=== PATIENT | female | born 1965 | race Caucasian/White ===

== ENCOUNTER 2019-08-11 17:07 | Emergency (ER) | payer OTHER, SELFPAY ==
--- NOTE | ~2019-08-11 | XR_ITS ---
EXAMINATION: XR chest 2V DATE: 08/11/2019 18:17 INDICATION: 2 weeks of cough and chest wall pain. TECHNIQUE: frontal and lateral views of the chest were obtained. COMPARISON: None FINDINGS: The lungs are clear with no focal airspace opacities, pulmonary edema, pleural effusion or pneumothor ax. The cardiomediastinal silhouette is normal. Mild thoracic spondylosis. IMPRESSION: 1. No acute cardiopulmonary disease. Reviewed, dictated and finalized at location A. L GRADER
[2019-08-11 17:22] VITALS: BP 145/86; PULSE 79; RESP 16; TEMP 36.5; O2SAT 98
--- NOTE | 2019-08-11 17:58 | ED.URI ---
HPI - URI/Sore Throat General Chief Complaint: Upper Respiratory Infection Stated Complaint: chest congestion Time Seen by Provider: 08/11/19 17:55 Source: patient and RN notes reviewed Mode of arrival: ambulatory Limitations: no limitations History of Present Illness HPI Narrative: 54-year-old female presents with concern for 2-week history of cough. Reports symptoms started with nasal congestion, drainage, cough. Reports most symptoms have resolved with the cough. Reports that symptoms are worsening. Reports episodes of shortness of breath. Reports left upper back pain with coughing. Reports she it is difficult to take a deep breath. Denies [id number] medications provide no relief MD elicited complaint: cough Related Data Allergies Allergy/AdvReac Type Severity Reaction Status Date / Time No Known Allergies Allergy Verified 08/11/19 17:11 Review of Systems Review of Systems: Narrative: CONSTITUTIONAL: Reports malaise. Denies chills, sweats, or fever. EYES: Denies visual changes, redness, or discharge. ENT: Denies rhinorrhea, congestion, sinus pain, otalgia and sore throat. CARDIOVASCULAR: Denies chest pain, palpitations, or edema. RESPIRATORY: Reports cough, chest congestion, back pain with coughing. Denies dyspnea. GASTROINTESTINAL: Denies abdominal pain, nausea, vomiting, diarrhea SKIN: Denies rash or itching. MUSCULOSKELETAL: Denies myalgia. NEUROLOGIC: Denies headache. All systems reviewed & are unremarkable except as noted in HPI and below PMFSH Comments At time of signature, agree with nursing past medical, surgical, social and family history. There is no relevant family history pertinent to the presenting complaint Exam Narrative: Exam Narrative: GENERAL: Well-appearing, well-nourished, and in no acute distress. HEAD: Normocephalic EYES: PERRLA, conjunctivae clear ENT: Nares clear, turbinates pink, no discharge. Mucous membranes moist. TM pearly chew with sharp light reflex bilaterally; no tragal tenderness. Oropharynx not erythematous without lesions. Tonsils not enlarged and without exudate, no drooling, no hoarseness, no trismus. NECK: Supple. No lymphadenopathy CHEST: Clear to auscultation, breath sounds equal. No wheezing, rhonchi, rales, or stridor. No respiratory distress, speaks in full sentences. Chest expansion equal, no bony deformities HEART: Regular rate and rhythm. No murmur heard. Normal peripheral pulses. SKIN: Warm, dry, no rash. NEURO: Alert and oriented x3. PSYCH: Normal mood and affect Course Course Emergency Course: Patient is aware of diagnosis, understands and agrees to treatment plan. Anticipatory guidance given. Patient agrees to follow-up as directed and is aware of reasons to seek care at the emergency department. Portions of this record may have been created with voice recognition software Vital Signs Vital signs: Vital Signs Temperature 97.7 F 08/11/19 17:22 Pulse Rate 79 08/11/19 17:22 Respiratory Rate 16 08/11/19 17:22 Blood Pressure 145/86 H 08/11/19 17:22 Pulse Oximetry 98 08/11/19 17:22 Temperature 97.7 F 08/11/19 17:22 Pulse Rate 79 08/11/19 17:22 Respiratory Rate 16 08/11/19 17:22 Blood Pressure 145/86 H 08/11/19 17:22 Pulse Oximetry 98 08/11/19 17:22 Reviewed. Patient has been instructed to follow up with her primary care provider within the next week regarding her elevated blood pressure today. MDM - URI/Sore Throat MDM Narrative Medical decision making narrative: Differential diagnosis considered: Strep pharyngitis, allergic rhinitis, upper respiratory tract infection, sinusitis, rhinosinusitis, nasopharyngitis. viral pharyngitis, otitis media, otitis externa, pneumonia, bronchitis, viral cough syndrome, viral syndrome, and influenza. Exam findings show no acute concerns or changes; patient is non-toxic appearing and is in no distress. Patient is appropriate for outpatient treatment and follow-up. Imaging Data My impression: Bull
== END 2019-08-11 18:41 | disposition home or self-care (01) ==
PROVIDERS: Emergency Provider Nurse Practitioner
DX: J40 Bronchitis, not specified as acute or chronic (principal); I34.1 Nonrheumatic mitral (valve) prolapse
CPT/HCPCS: 71046; 99203; G0463

== ENCOUNTER 2021-03-05 11:39 | Emergency (ER) | payer OTHER, SELFPAY ==
[2021-03-05 11:49] VITALS: BP 153/81; PULSE 76; RESP 18; TEMP 37.2; O2SAT 98
--- NOTE | 2021-03-05 13:38 | ED.SKABFB ---
HPI - Skin/Abscess/Foreign Bdy General Chief complaint: Skin/Abscess/Foreign Body Stated complaint: Insect Bite Time Seen by Provider: 03/05/21 13:38 Source: patient, RN notes reviewed and old records reviewed Mode of arrival: ambulatory Limitations: no limitations History of Present Illness HPI narrative: 55 year old female presents to express care with complaints of itchy spot to her left lower neck area on Friday, thinks she got bit by some kind of bug. On Friday the spot was bigger and red with no pustular formation but remained itchy seemed to get better using OTC Benadryl and Ibuprofen. Friday through today she has been having swelling and puffiness to her eyes, no itching pain or drainage noted or any redness of her eyes has been using some ice packs to her eyes. Spot on her left neck area is small 0.2cm diameter with minimal redness now. Patient states that she has never had any seasonal allergies before, was started on some new medications 3 weeks or so ago and she talked to her doctor and he said that he didn't think it was related to new medications. MD complaint: insect bite/sting Related Data Home Medications Medication Instructions Recorded Confirmed alprazolam 0.5 mg PO TID PRN 03/05/21 03/05/21 dextroamphetamine-amphetamine 10 mg PO BID 03/05/21 03/05/21 escitalopram oxalate 20 mg PO DAILY 03/05/21 03/05/21 Allergies Allergy/AdvReac Type Severity Reaction Status Date / Time No Known Allergies Allergy Verified 03/05/21 13:03 Review of Systems Review of Systems: CONSTITUTIONAL: Denies fever, chills, or sweats. EYES: Denies visual changes, redness, or discharge, some puffiness of eyes and eyes feel droopy ENT: Denies rhinorrhea, congestion, sore throat, or otalgia. CARDIOVASCULAR: Denies chest pain, palpitations, or edema. RESPIRATORY: Denies cough or dyspnea. GASTROINTESTINAL: Denies abdominal pain, nausea, vomiting, or diarrhea. GENITOURINARY: Denies dysuria or hematuria. SKIN: Denies rash, small raised area to left lower neck with itching. MUSCULOSKELETAL: Denies back pain, joint pain, or myalgia. NEUROLOGIC: Denies headache, numbness, or weakness. PSYCHIATRIC:Positive for history of anxiety or depression. All systems reviewed & are unremarkable except as noted in HPI and below PMFSH Past Medical History Medical History (Updated 03/07/21 @ 14:11 by Glenda Rico NP) ADD (attention deficit disorder) Anxiety with depression Surgical History Surgical History (Updated 03/07/21 @ 14:12 by Glenda Rico NP) No history of previous surgery Family History Family History (Updated 03/07/21 @ 14:13 by Glenda Rico NP) Other No significant family history Social History Social History (Updated 03/07/21 @ 14:13 by Glenda Rico NP) Smoking status: Never smoker Alcohol intake: current Alcohol use details: rare social Substance use: never Living arrangements: with family Gender identity (if verbalized by the patient): Female Comments At time of signature, agree with nursing past medical, surgical, social and family history. There is no relevant family history pertinent to the presenting complaint Exam Narrative: GENERAL: Well-appearing, well-nourished, and in no acute distress. HEAD: Normocephalic, atraumatic. EYES: PERRLA and EOMI.minimal puffiness noted under eyes with no redness, drainage, or pain ENT: Nares clear, no rhinorrhea or epistaxis. Mucous membranes moist.Tm's normal throat pink with no redness no lesions or exudates or any tonsil enlargement.Denies any difficulty with swallowing. NECK: Supple.no lymphadenopathy CHEST: Clear to auscultation. No respiratory distress.SAO2 98% on room air HEART: Regular rate and rhythm. No murmur heard. Normal peripheral pulses. ABDOMEN: Soft, nontender, nondistended, normal active bowel sounds. EXTREMITIES: Normal range of motion. No edema. SKIN: Warm, dry, no rash.small 0.2cm minimal red lesion to left neck no induratio
== END 2021-03-05 14:05 | disposition home or self-care (01) ==
PROVIDERS: Emergency Provider Registered Nurse
DX: L25.9 Unspecified contact dermatitis, unspecified cause (principal)
CPT/HCPCS: 99213; G0463

== ENCOUNTER 2021-03-19 09:41 | Emergency (ER) | payer OTHER, SELFPAY ==
[2021-03-19 09:50] VITALS: BP 145/94; PULSE 66; RESP 16; TEMP 36.4; O2SAT 100
--- NOTE | 2021-03-19 10:36 | ED.GENADULT ---
HPI - General Adult General Chief complaint: Skin/Abscess/Foreign Body Stated complaint: Insect Bite Time Seen by Provider: 03/19/21 10:13 Source: patient and RN notes reviewed Mode of arrival: ambulatory Limitations: no limitations History of Present Illness HPI narrative: Patient presents today complaining of increased sleepiness, decreased energy x1 week. Patient was bit by a spider 2 weeks ago and was seen in urgent care and treated for an allergic reaction related to the spider bite. She never developed symptoms related to an infection. She took a course of steroids, Pepcid, and Zyrtec. She presents today because she believes she has an infection and the infection is inside of her body and causing this decreased energy and sleepiness and she would like an antibiotic to help this. Patient currently Lexapro, Xanax, and Adderall, prescribed by her psychiatrist. She believes that these medications are not related to her current sleepiness and decreased energy as she was taking them for a few weeks prior to the spider bite. MD complaint: Decreased energy Related Data Home Medications Medication Instructions Recorded Confirmed alprazolam 0.5 mg PO TID PRN 03/05/21 03/19/21 dextroamphetamine-amphetamine 10 mg PO BID 03/05/21 03/19/21 escitalopram oxalate 20 mg PO DAILY 03/05/21 03/19/21 Allergies Allergy/AdvReac Type Severity Reaction Status Date / Time No Known Allergies Allergy Verified 03/19/21 10:20 Review of Systems Review of Systems: CONSTITUTIONAL: Denies body aches, fever, chills, or sweats.+ Decreased energy EYES: Denies visual changes, redness, or discharge. ENT: Denies rhinorrhea, congestion, sore throat, or otalgia. CARDIOVASCULAR: Denies chest pain, palpitations, or edema. RESPIRATORY: Denies cough or dyspnea. GASTROINTESTINAL: Denies abdominal pain, nausea, vomiting, or diarrhea. GENITOURINARY: Denies dysuria or hematuria. SKIN: Denies rash, itching, or wounds. MUSCULOSKELETAL: Denies back pain, joint pain, or myalgia. NEUROLOGIC: Denies headache, numbness, tingling, or weakness. PSYCH: Denies depression or anxiety. [facility] Past Medical History Medical History ADD (attention deficit disorder) Anxiety with depression Surgical History Surgical History No history of previous surgery Family History Family History Other No significant family history Social History Social History Smoking status: Never smoker Alcohol intake: current Alcohol use details: rare social Substance use: never Gender identity (if verbalized by the patient): Female Comments At time of signature, I have reviewed and agree with nursing past medical, surgical, social and family history unless otherwise noted. Please see nursing chart for further information. There is no relevant family history pertinent to the presenting complaint Exam Narrative: GENERAL: Well-appearing, well-nourished, and in no acute distress. HEAD: Normocephalic, atraumatic. EYES: EOMI. No redness or drainage. Conjunctivae normal. ENT: Mucous membranes pink and moist. NECK: Normal AROM. Spider bite was to the right neck/shoulder area. Area is almost slightly healed without signs of infection, erythema, ecchymosis. CHEST: No respiratory distress. EXTREMITIES: Normal range of motion. No edema. SKIN: Warm, dry, no rash. Capillary refill normal. Normal skin turgor. NEURO: No focal deficits. Alert and oriented x3. Gait steady. PSYCH: Normal affect. No signs of depression or anxiety. Course Course Emergency Course: I had an extensive conversation with the patient regarding her symptoms. I do not believe patient has an infection today, as her spider bite is almost 100% healed. Patient is requesti
== END 2021-03-19 10:48 | disposition home or self-care (01) ==
PROVIDERS: Emergency Provider Nurse Practitioner
DX: R53.83 Other fatigue (principal); F41.9 Anxiety disorder, unspecified
CPT/HCPCS: 99211; G0463

== ENCOUNTER 2022-07-02 17:27 | Inpatient (IN) | payer OTHER, SELFPAY ==
--- NOTE | ~2022-07-02 | MR_ITS ---
MR/MRCP of the abdomen: Clinical indication: Abdominal pain. Technique: Coronal SSFSE ARC, WATER:coronal LAVA-FLEX, Coronal 2D FIESTA FatSat, Axial SSFSE BH ARC, Axial 3D DualEcho BH, Axial SSFSE-IR, Axial DWI b=500, Axial 2D FIESTA FatSat, pre and dynamic postco ntrast Axial LAVA ARC, postcontrast Coronal In and Opposed phase LAVA FLEX. 14 mL of MultiHance was a dministered intravenously for postcontrast imaging. Findings: Multiple gallstones are noted. There is mild gallbladder wall thickening and minimal peric holecystic fluid. The common bile duct is nondilated. No filling defects are seen within the CBD. No evidence of intrahepatic biliary ductal dilatation. The pancreatic duct is normal in size. Liver, spleen, pancreas, adrenals, kidneys appear normal. The aorta and the paraaortic regions appear normal. No abnormal postcontrast enhancement seen. Impression: Cholelithiasis. Gallbladder wall thickening and pericholecystic fluid is consistent with superimposed acute cholecyst itis. Consider HIDA scan as indicated. No evidence for choledocholithiasis. Reviewed, dictated and finalized at [facility]. RAIT PHOTOGRAPHER Impression: Cholelithiasis. Gallbladder wall thickening and pericholecystic fluid is consistent with superi mposed acute cholecystitis. Consider HIDA scan as indicated. No evidence for choledocholithiasis.
--- NOTE | ~2022-07-02 | CT_ITS ---
EXAMINATION: CT abdomen pelvis w con DATE: 07/02/2022 18:48 INDICATION: Right upper quadrant and epigastric abdominal pain. Vomiting. TECHNIQUE: Computed tomography (CT) of the abdomen and pelvis was performed with 100 mL Omnipaque 350 intravenous contrast. Automated exposure control and iterative reconstruction technique were employe d. The dose-length product was 370.39 mGy-cm. COMPARISON: None. FINDINGS: The visualized portions of the lung bases demonstrate mild atelectasis. No pleural effusion . The heart size is normal. No pericardial effusion. There is a small sliding hiatal hernia. There is mild intrahepatic biliary duct dilatation. The gallbladder is distended and contains gallstones. Gal lbladder wall thickening is noted. The common duct is normal and measures 6 mm. The spleen, pancreas, adrenal glands, and kidneys are normal. There are no dilated loops of bowel. The appendix is normal. There is physiologic fluid in the pelvis. There are no pathologically enlarged lymph nodes. There is mild thoracolumbar spondylosis. IMPRESSION: 1. Acute cholecystitis. 2. Mild intrahepatic biliary duct dilatation. Reviewed, dictated and finalized at location A. ING MILL OPERATOR HELPER
--- NOTE | ~2022-07-02 | XR_ITS ---
EXAMINATION: XR chest 2V DATE: 07/02/2022 18:05 INDICATION: Chest pain. TECHNIQUE: Frontal and lateral views of the chest were obtained. COMPARISON: Chest 2 views 08/11/2019 FINDINGS: There is no pneumonia, pleural effusion, or pneumothorax. The heart size is normal. IMPRESSION: 1. No acute cardiopulmonary disease. Reviewed, dictated and finalized at location A. R PRESSER
--- NOTE | ~2022-07-02 | XR_ITS ---
Portable chest x-ray Comparison: 07/02/2022 Clinical History: Hypoxia Findings: Probable mild bibasilar atelectatic change and/or interstitial edema. No pleural effusion. Cardiomediastinal silhouette is stable. Bones and soft tissues are unremarkable. Impression: Probable mild bibasilar atelectatic change and/or interstitial edema. Reviewed, dictated and finalized at location . GER QUALITY IMPROVEMENT Impression: Probable mild bibasilar atelectatic change and/or interstitial edema.
--- NOTE | 2022-07-02 17:33 | ECG_ITS ---
Measurements Intervals [place] Rate: 100 P: 48 DE: 157 QRS: 70 QRSD: 80 T: 58 QT: 350 QTc: 452 Interpretive Statements SINUS TACHYCARDIA BORDERLINE ECG NO PREVIOUS ECG AVAILABLE FOR COMPARISON Electronically Signed On 07-02-2022 19:56:58 INDUSTRIAL ENGINEER by Malik Sheridan D.O.
--- NOTE | 2022-07-02 17:47 | ED.CHESTPAIN ---
HPI - Chest Pain General Chief Complaint: Chest Pain Stated Complaint: chest tightness, pain radiates to back, vomiting Time Seen by Provider: 07/02/22 17:47 History of Present Illness HPI narrative: Patient is a 56-year-old female with a history of anxiety and depression presenting with abdominal pain. Patient states that for the last 24 hours she has had significant pain in her epigastrium and right upper quadrant. States this has been associated with numerous episodes of emesis. States she has been unable to keep anything down today. States that she had a normal bowel movement earlier today. States that she also feels like her abdomen is bloated. She states that she has some chest tightness in the center of her chest. No shortness of breath, palpitations, lightheadedness. No fevers or chills, cough, diarrhea, dysuria, leg swelling. Related Data Home Medications Medication Instructions Recorded Confirmed alprazolam 0.5 mg tablet 0.5 mg PO TID PRN Anxiety 03/05/21 07/02/22 escitalopram oxalate 20 mg tablet 20 mg PO DAILY 03/05/21 07/02/22 Allergies Allergy/AdvReac Type Severity Reaction Status Date / Time No Known Allergies Allergy Verified 07/02/22 17:55 Review of Systems Review of Systems: All systems reviewed & are unremarkable except as noted in HPI and below PMFSH Past Medical History Medical History ADD (attention deficit disorder) Anxiety with depression Postmenopausal Surgical History Surgical History H/O left wrist surgery Reconstructive surgery to the ventral wrist after falling through a plate glass window History of 2 sections Family History Family History Son History of sudden cardiac arrest successfully resuscitated, Onset Age: 25 [address]iac defibr[address]ator in place Mitral valve prolapse Father , At age 62 Acute myocardial infarction Grandparent , At age 57 Acute myocardial infarction Mother Gallbladder disease Social History Social History Social History: 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 She lives alone. She has 2 adult sons ages 30 in 35. 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 She is a lifelong nonsmoker. She drinks alcohol approximately once per month. She denies illicit substance use. Code status: Full code Surrogate decision maker: Pili Anthony (mother) Smoking status: Never smoker Alcohol intake: never Alcohol use details: rare social Substance use: never Lack of Transportation: No Lack of Food: Never True Current Housing: I Have Housing Concerned About Future Housing: Decline to Answer Difficulty Paying Gas/Electric Bills: Decline to Answer Difficulty Paying for Meds: Decline to Answer Currently Unemployed: Decline to Answer Education: Decline to Answer Difficulty w/ Childcare or Family Care: Decline to Answer Living arrangements: with family Gender identity (if verbalized by the patient): Female Spiritual care concerns: No Exam Narrative: GENERAL: Well-appearing, well-nourished, and in no acute distress. HEAD: Normocephalic, atraumatic. EYES: PERRLA and EOMI. ENT: Nares clear, no rhinorrhea or epistaxis. Mucous membranes moist. NECK: Supple. CHEST: Clear to auscultation. No respiratory distress. HEART: Regular rate and rhythm. No murmur heard. Normal peripheral pulses. ABDOMEN: Soft, tender in epigastrium and right upper quadrant without guarding or rebound nondistended, normal active bowel sounds. EXTREMITIES: Normal range of motion. No edema. SKIN: Warm, dry, no rash. NEURO: No focal deficits. Alert and oriented x3. PSYCH: Normal mood and affect. Course Vital Signs Vital signs: Vital Signs Pulse Rate 86 07/02/22 18:22 Respiratory Rate 16
[2022-07-02 17:52] LABS: Basophils Percent Auto 0.2 % (0.2-1.2); Hematocrit 39.8 % (37.0-47.0); Hemoglobin 13.5 g/dL (12.0-15.0); Immature Granulocyte Absolute 0.04 K/mm3 (0.00-0.031); Immature Granulocyte Percent A 0.3 % (0-0.5); Lymphocytes Absolute Auto 0.89 K/mm3 (0.9-3.2); Lymphocytes Percent Auto 6.6 % (18.3-44.2); Mean Corpuscular HGB Conc 33.9 g/dl (32-36); Mean Corpuscular Hemoglobin 29.5 pg (26-34); Mean Corpuscular Volume 87.1 fl (80-100); Mean Platelet Volume 9.3 fl (7.4-10.4); Monocytes Percent Auto 7.6 % (2.6-8.5); Neutrophils Absolute Auto 11.5 K/mm3 (1.3-6.7); Neutrophils Percent Auto 85.3 % (45.5-73.1); Platelet Count Result 312 k/mm3 (150-375); Red Blood Count 4.57 M/mm3 (4.2-5.4); White Blood Count 13.5 K/mm3 (4.5-10.0)
[2022-07-02] MEDS: ASPIRIN 81 MG CHEWABLE TABLET 324 MG PO (17:55)
[2022-07-02 18:09] LABS: Partial Thromboplastin Time 24.6 SECONDS (22.3-36.8)
[2022-07-02 18:12] LABS: Albumin Level 4.6 g/dL (3.5-5.1); Alkaline Phosphatase 231 U/L (38-126); Anion Gap 6 mmol/L (8-16); Bilirubin,Total 2.6 mg/dL (0.2-1.3); Blood Urea Nitrogen 9 mg/dL (7-17); Calcium 8.8 mg/dL (8.4-10.2); Carbon Dioxide 27 mmol/L (22-30); Chloride 101 mmol/L (98-107); Estimated CRCL calculation 101 ml/min; Estimated Glomerular Filt Rate > 60; Glucose 138 mg/dL (65-110); Lipase 62 U/L (23-300); Potassium 3.7 mmol/L (3.4-5.0); Sodium 134 mmol/L (137-145)
[2022-07-02 18:21] LABS: Troponin I < 0.012 ng/mL (0.000-0.034)
[2022-07-02 18:22] VITALS: BP 126/82; PULSE 86; RESP 16; O2SAT 97
[2022-07-02 18:30] VITALS: BP 141/87; PULSE 85; RESP 23; O2SAT 98
[2022-07-02] MEDS: ONDANSETRON INJ 4 MG/2 ML VIAL IV PUSH (18:56)
[2022-07-02] MEDS: SODIUM CHLORIDE 0.9% IV 1,000 ML 999 ML IV CONT (18:56)
[2022-07-02 18:57] LABS: Alanine Aminotransferase 1453 U/L (6-35); Aspartate Amino Transferase 1639 U/L (14-36)
[2022-07-02 19:00] VITALS: PULSE 87; RESP 20; O2SAT 96
[2022-07-02] MEDS: HYDROmorphone HCL INJ (*CRX) 1 MG/ML SYR 0.5 MG IV PUSH (19:14)
[2022-07-02 19:56] LABS: Appearance Urine Clear (Clear); Bilirubin Urine 1+ (Negative); Blood Urine Trace-intact (Negative); Color Urine Yellow (Yellow); Glucose Urine UA Negative (Negative); Ketones Urine Negative (Negative); Leukocyte Esterase Ur Trace LEU/UL (Negative); Nitrate Urine Negative (Negative); Protein Urine Negative (Negative)
[2022-07-02] MEDS: metroNIDAZOLE 500 MG/ISO 100ML 500 MG/100 ML BAG 100 MG IVPB (19:58)
[2022-07-02 20:00] VITALS: BP 140/81; PULSE 88; RESP 24; O2SAT 91
[2022-07-02 20:02] LABS: Mucus Urine Few /lpf; Squamous Epithelial Cell Urine Many /hpf (Few); WBC Urine 0-3 /hpf
[2022-07-02 20:03] LABS: Add Urine Microscopic? YES
[2022-07-02 20:42] LABS: Influenza A QL RT-PCR Negative (Negative); Influenza B QL RT-PCR Negative (Negative); SARS-CoV-2 RNA PCR Negative
--- NOTE | 2022-07-02 21:07 | PM.IMHP ---
H&P: HPI History of Present Illness Date/Time: 07/02/22 20:40 Chief Complaint: Chest pain and abdominal pain Narrative: 56-year-old female with a past medical history of anxiety, depression and ADHD who presented to the ER via private vehicle with chest pain, abdominal pain and vomiting. Patient reports her symptoms started around 18:00 last evening after she 80 pizza with extra cheese. Proximally 2 hours after eating she began having some discomfort in her chest accompanied by epigastric abdominal pain that radiated through to her back and into her right upper quadrant. Shortly thereafter she began having numerous episodes of emesis. Her emesis consisted of the food she had previously eaten and then became dry heaves. She reports that she relates the pain similar to labor pains. Position changes and medications including Tylenol did not help. She did try drinking some clear soda which also did not help. The pain was a 10/10 in intensity. She did not have any associated fevers or chills. When she woke up this morning her pain had improved. She tried drinking some clear [place] before going to work. When she arrived at work her abdominal pain returned. When her symptoms persisted throughout the afternoon she decided to come to the ER. She reports that she had similar symptoms but not to this extent shortly after Thanksgiving. She also reports that for the last couple of months she has been having sensation of early satiety and abdominal bloating. She denies any changes in her bowel habits. She has not noticed any hematochezia or melena. She denies any hematemesis. At the time of my evaluation the patient reports her pain is a 7/10 in intensity but is not reproducible on exam. In the ER CT demonstrated acute cholecystitis with cholelithiasis and mild intrahepatic biliary duct dilatation. Labs were significant for bilirubin to 2.6 AST 1639 and ALT of 1453 with alk-phos of 231. The patient's lipase was normal. The patient did have mild leukocytosis and received Rocephin and Flagyl for acute cholecystitis. She also received 1 dose of aspirin 324 mg. Her EKG demonstrated mild sinus tachycardia without any ST or T-wave changes. Patient was admitted for acute cholecystitis. Review of Systems Review of Systems: 12 systems were reviewed with pertinent positives and negatives per HPI. Except as documented in the HPI, all other systems were reviewed and are negative. [facility] Past Medical History Medical History (Updated 07/02/22 @ 22:25 by Sruthi Ponce DO) ADD (attention deficit disorder) Anxiety with depression Postmenopausal Surgical History Surgical History (Updated 07/02/22 @ 21:09 by Sruthi Ponce DO) H/O left wrist surgery Reconstructive surgery to the ventral wrist after falling through a plate glass window History of 2 sections Family History Family History (Updated 07/02/22 @ 22:26 by Sruthi Ponce DO) Son History of sudden cardiac arrest successfully resuscitated, Onset Age: 25 Cardiac defibrillator in place Mitral valve prolapse Father , At age 62 Acute myocardial infarction Grandparent , At age 57 Acute myocardial infarction Social History Social History (Updated 07/02/22 @ 22:26 by Sruthi Ponce DO) Social History: 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 She lives alone. She has 2 adult sons ages 30 in 35. 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 She is a lifelong nonsmoker. She drinks alcohol approximately once per month. She denies illicit substance use. Code status: Full code Surrogate decision maker: Pili Anthony (mother) Smoking status: Never smoker Alcohol intake: never Alcohol use details: rare social Substance use: never Lack of Transportation: No Lack of Food: Never True Current Housing: I Have Housing Concerned About Future Housing: Decline to Answer Difficulty Paying Gas/Electric Bills: Angel
[2022-07-02 21:20] VITALS: BP 128/72; PULSE 75; RESP 20; O2SAT 97
[2022-07-02 21:37] VITALS: BP 140/82; PULSE 74; RESP 16; TEMP 36.8; O2SAT 96
[2022-07-02 21:38] VITALS: BMI 28.0
[2022-07-02] MEDS: SODIUM CHLORIDE 0.9% IV 1,000 ML 150 ML IV CONT (21:40)
--- NOTE | 2022-07-02 22:22 | PC.NURSE ---
This patient, Cheryl Waller, was admitted to Medical Room 340-01. Patient/family oriented to hospital policies and general routines including ID bracelet, bed and alarms, visiting hours, pain management, procedures, bathroom and other care routines, personal items, smoking policy, room service/diet, and visiting hours. Information on how to activate the Rapid Response Team has been discussed. Patient/Family are encouraged to report perceived risks to care and to ask questions if they do not understand what they are told or what they should do.
[2022-07-03] VITALS (13 sets, daily range): BP systolic 123–145; BP diastolic 51–74; PULSE 72–101; RESP 16–20; TEMP 36.6–37.5; O2SAT 93–98
[2022-07-03] MEDS: HYDROmorphone HCL INJ (*CRX) 2 MG/ML VIAL 0.5 MG IV PUSH ×3 (00:54→12:38)
[2022-07-03] MEDS: metroNIDAZOLE 500 MG/ISO 100ML 500 MG/100 ML BAG 100 MG IVPB ×3 (05:21→21:53)
[2022-07-03 05:44] LABS: Hematocrit 35.8 % (37.0-47.0); Hemoglobin 11.8 g/dL (12.0-15.0); Mean Corpuscular Hemoglobin 29.4 pg (26-34); Mean Corpuscular Volume 89.3 fl (80-100); Mean Platelet Volume 9.8 fl (7.4-10.4); Platelet Count Result 243 k/mm3 (150-375); Red Blood Count 4.01 M/mm3 (4.2-5.4); Red Cell Distribution Width 13.1 % (11.5-14.5); White Blood Count 9.9 K/mm3 (4.5-10.0)
[2022-07-03 06:13] LABS: Albumin Level 3.6 g/dL (3.5-5.1); Alkaline Phosphatase 238 U/L (38-126); Anion Gap 1 mmol/L (8-16); Bilirubin,Total 3.6 mg/dL (0.2-1.3); Blood Urea Nitrogen 7 mg/dL (7-17); Calcium 7.9 mg/dL (8.4-10.2); Carbon Dioxide 31 mmol/L (22-30); Chloride 109 mmol/L (98-107); Estimated CRCL calculation 102 ml/min; Estimated Glomerular Filt Rate > 60; Glucose 134 mg/dL (65-110); Sodium 141 mmol/L (137-145)
[2022-07-03 06:19] LABS: Alanine Aminotransferase 1305 U/L (6-35); Aspartate Amino Transferase 892 U/L (14-36)
[2022-07-03] MEDS: SODIUM CHLORIDE 0.9% IV 1,000 ML 150 ML IV CONT (08:03)
--- NOTE | 2022-07-03 11:15 | PM.CNGS ---
Assessment and Plan Assessment and plan (1) Cholelithiasis with acute cholecystitis: Qualifiers: Biliary obstruction: with biliary obstruction Qualified Code(s): K80.01 - Calculus of gallbladder with acute cholecystitis with obstruction Code(s): K80.00 - Calculus of gallbladder with acute cholecystitis without obstruction Status: Acute Assessment and Plan: She presents with acute calculous cholecystitis and elevated liver enzymes. Her total bilirubin has gone up to 3.6 today. She continues to have abdominal pain requiring IV Dilaudid this morning. Will await MRCP results to further evaluate for a common bile duct stone. Discussed treatment options with the patient. If she has evidence of choledocholithiasis, then we will await GI's recommendations for possible ERCP. If the MRCP is negative, then we could consider proceeding with a laparoscopic cholecystectomy, possible open under general anesthesia. I went ahead and discussed the procedure, risks, benefits, expected outcomes, and expected recovery in detail with the patient. Continue broad-spectrum IV antibiotics, IV fluids, and NPO for now. Further plan depending on MRCP results. (2) Transaminitis: Code(s): R74.01 - Elevation of levels of liver transaminase levels Status: Acute Assessment and Plan: Elevated LFTs on admission with total bilirubin 2.6 that has gone up to 3.[address] suggested mild intrahepatic biliary ductal dilatation. Agree with MRCP to evaluate for common duct stone. GI has also been consulted. Plan I have discussed the patient's case and plan of care with Dr. Esquivel. Thank you for allowing us to see the patient in consultation and we will continue to follow along with you. History of Present Illness Consult details Consult date: 07/03/22 Reason for consult: other (Acute cholecystitis) Requesting physician: Kymberly Dumont MD Narrative: This is a 57-year-old woman with history of anxiety, who presented to the emergency department yesterday with complaints epigastric abdominal pain x 2 days. She reports an onset epigastric abdominal pain around 6:00 p.m. 2 days ago after eating pizza. She initially thought she had indigestion and within an hour began having sharp epigastric abdominal pain. This pain radiated to her mid back. She developed nausea and multiple episodes of vomiting. Yesterday, her pain persisted but seemed to get slightly better. She tried drinking sips of water and 7-Up, but would vomit shortly after any intake. Around 1:30pm yesterday afternoon her pain became severe again and she decided to come into the ER for further evaluation. Labs [place] [address] with a left shift, total bilirubin 2.6, AST 1639, ALT 1453, alk-phos 231, negative troponin, and lipase 62. CT scan of the abdomen and pelvis suggests acute calculus cholecystitis with mild intrahepatic bile duct dilatation. She was admitted to the hospitalist service. Our service was consulted by the ED provider for acute cholecystitis. She is now seen on the medical floor. She had an MRCP ordered, which has not yet been done. Labs this morning showed her white blood cell count coming down to normal and her total bilirubin went up to 3.6. GI has been consulted. She continues to have epigastric abdominal pain that required IV Dilaudid around 5:00 a.m. this morning. She denies any current nausea. She denies any dark tea-colored urine, light-colored stools, or scleral icterus. She does endorse having a similar episode of abdominal pain around that was mild and resolved spontaneously at home. Only previous abdominal surgery is 2 deliveries. Review of Systems Review of Systems: All systems reviewed & are unremarkable except as noted in HPI and below Constitutional: Constitutional: Reports no additional constitutional complaints, Denies chills, Denies fatigue and Denies poor appetite Eyes:
--- NOTE | 2022-07-03 16:06 | PC.NURSE ---
Pt to rad @ 4021
--- NOTE | 2022-07-03 16:16 | PM.IMPN ---
Progress Note: A&P Assessment and Plan (1) Cholelithiasis with acute cholecystitis: Qualifiers: Biliary obstruction: with biliary obstruction Qualified Code(s): K80.01 - Calculus of gallbladder with acute cholecystitis with obstruction Code(s): K80.00 - Calculus of gallbladder with acute cholecystitis without obstruction Status: Acute Assessment and Plan: patient presented with epigastric and right upper quadrant pain. CT of the abdomen/pelvis revealed acute cholecystitis with mild intrahepatic biliary duct dilation. Lipase within normal limits. Appreciate general surgery and gastroenterology consultation. Patient with transaminitis and mild intrahepatic biliary duct dilation noted on CT, therefore MRCP completed today which showed cholelithiasis, gallbladder wall thickening and pericholecystic fluid consistent with acute cholecystitis. Planning for laparoscopic cholecystectomy this evening. No evidence of choledocholithiasis. Continue with NPO diet. IV fluids while NPO. Continue ceftriaxone andflagyl. Analgesics and antiemetics available as needed (2) Transaminitis: Code(s): R74.01 - Elevation of levels of liver transaminase levels Status: Acute Assessment and Plan: total bilirubin increased from 2.6 at 3.6 today, however with improvement in AST and ALT. See plan above. No evidence of obstruction. Continue to monitor LFTs. Appreciate GI recommendations (3) Anxiety with depression: Code(s): F41.8 - Other specified anxiety disorders Status: Chronic Assessment and Plan: no acute issues. Mood is stable. Home alprazolam and Lexapro on hold while NPO Subjective Date/time seen: 07/03/22 16:16 Interval history: date of service: 07/03/2022 Cheryl Monaco is a 56-year-old female with history of anxiety, depression, and attention deficit disorder who is seen in follow-up for cholelithiasis and acute cholecystitis. She is feeling better today. reports her abdominal pain is 6/10. Describes the pain as sharp, starting in the epigastric region and radiating through to her back. Pain is improved from yesterday. She complains of headache. She felt nauseous this morning when she got up and walk to the bathroom but at rest she is comfortable. No episodes of emesis. Denies fever or chills. Denies dizziness, lightheadedness, weakness. Denies shortness of breath or cough. She has been NPO today and complains of dry mouth Review of Systems Review of Systems: All systems reviewed & are unremarkable except as noted in HPI and below Exam Narrative: General: well-nourished, well-appearing 56-year-old female, sitting up in bed, comfortable, NARD Neuro: awake, alert and oriented x4, speech clear, no focal neuro deficits noted HEENMT: normocephalic, atraumatic, EOMI, sclerae anicteric Respiratory: clear to auscultation bilaterally, nonlabored breathing Cardio: regular rate, regular rhythm with S1-S2 Abdomen: nondistended, normoactive bowel sounds, soft, tender to palpation epigastric region and right upper quadrant, Torres sign positive Extremities: no edema, erythema, or tenderness to palpation, DP pulses 2+ bilaterally Skin: no rashes or lesions, warm and dry Psych: appropriate mood and affect, judgment and insight intact Objective Data Vital Signs Vital Signs: Vital Signs - 24 hr 07/02/22 18:22 07/02/22 18:30 07/02/22 19:00 Temperature Pulse Rate 86 85 87 Respiratory Rate 16 23 H 20 Blood Pressure 126/82 141/87 H Pulse Oximetry 97 98 96 Oxygen Delivery 07/02/22 21:20 07/02/22 20:00 07/02/22 21:37 Temperature 98.2 F Pulse Rate 75 88 74 Respiratory Rate 20 24 H 16 Blood Pressure 128/72 140/81 140/82 Pulse Oximetry 97 91 96 Oxygen Delivery 07/02/22 22:19 07/03/22 06:00 07/03/22 14:51 Temperature 97.9 F 98.3 F Pulse Rate 85 87 Respiratory Rate 16 16 Blood Pressure 140/74 123/62 Pulse Oximetry 96 96 Oxyge
[2022-07-03] MEDS: LACTATED RINGERS 1,000 ML 30 ML IV CONT (16:30)
--- NOTE | 2022-07-03 16:54 | WPDANESEPPF ---
Anes - Initial Pre Proc Eval Procedure: Operation Date: 07/03/22 18:45 Proposed Procedures p Laparoscopic Cholecystectomy, Possible Open - Romario Esquivel DO Date/Time: 07/03/22 16:54 Surgeon: Charmaine Kim PA-C Pre Op Diagnosis: Acute Cholecystitis Patient Data Age: 56 Gender: F Height: 1.6 m Weight: 72 kg Last Vital Signs Temp 37.5 C 07/03/22 16:15 Pulse 86 07/03/22 16:15 Resp 16 07/03/22 16:15 BP 136/66 07/03/22 16:15 Pulse Ox 95 07/03/22 16:15 O2 Del Method Room Air 07/03/22 16:15 Allergies Allergy/AdvReac Type Severity Reaction Status Date / Time No Known Allergies Allergy Verified 07/02/22 17:55 Home Medications Medication Instructions Recorded Confirmed Type alprazolam 0.5 mg tablet 0.5 mg PO TID PRN Anxiety 03/05/21 07/02/22 History escitalopram oxalate 20 mg tablet 20 mg PO DAILY 03/05/21 07/02/22 History Laboratory Tests 07/02/22 07/02/22 07/02/22 17:43 17:43 17:43 WBC 13.5 K/mm3 H K/mm3 (4.5-10.0) RBC 4.57 M/mm3 M/mm3 (4.2-5.4) Hgb 13.5 g/dL g/dL (12.0-15.0) Hct 39.8 % % (37.0-47.0) MCV 87.1 fl fl (80-100) MCH 29.5 pg pg (26-34) MCHC 33.9 g/dl g/dl (32-36) RDW 13.0 % % (11.5-14.5) Plt Count 312 k/mm3 k/mm3 (150-375) MPV 9.3 fl fl (7.4-10.4) Immature Gran % (Auto) 0.3 % % (0-0.5) Neut % (Auto) 85.3 % H % (45.5-73.1) Lymph % (Auto) 6.6 % L % (18.3-44.2) [place] % (Auto) 7.6 % % (2.6-8.5) Eos % (Auto) 0.0 % % (0-4.4) Baso % (Auto) 0.2 % % (0.2-1.2) Lymph # (Auto) 0.89 K/mm3 L K/mm3 (0.9-3.2) [place] # (Auto) 1.0 K/mm3 H K/mm3 (0.1-0.6) Eos # (Auto) 0.0 K/mm3 K/mm3 (0-0.3) Baso # (Auto) 0.0 K/mm3 K/mm3 (0.0-0.1) Abs Immat Gran (auto) 0.04 K/mm3 H K/mm3 (0.00-0.031) Absolute Neuts (auto) 11.5 K/mm3 H K/mm3 (1.3-6.7) Absolute Nucleated RBC 0.0 K/mm3 K/mm3 (0.0-0.012) Nucleated RBC % 0.0 % % (0.0-0.2) PT 13.0 Seconds Seconds (11.1-14.7) INR 1.0 APTT 24.6 SECONDS SECONDS (22.3-36.8) Sodium 134 mmol/L L mmol/L (137-145) Potassium 3.7 mmol/L mmol/L (3.4-5.0) Chloride 101 mmol/L mmol/L (98-107) Carbon Dioxide 27 mmol/L mmol/L (22-30) Anion Gap 6 mmol/L L mmol/L (8-16) BUN 9 mg/dL mg/dL (7-17) Creatinine 0.50 mg/dL L mg/dL (0.7-1.0) Estim Creat Clear Calc 101 ml/min ml/min Estimated GFR > 60 (59 - ) Glucose 138 mg/dL H mg/dL (65-110) Calcium 8.8 mg/dL mg/dL (8.4-10.2) Total Bilirubin 2.6 mg/dL H mg/dL (0.2-1.3) AST 1639 U/L H U/L (14-36) ALT 1453 U/L H U/L (6-35) Alkaline Phosphatase 231 U/L H U/L (38-126) Troponin I < 0.012 ng/mL ng/mL (0.000-0.034) Total Protein 8.0 g/dL g/dL (6.3-8.2) Albumin 4.6 g/dL g/dL (3.5-5.1) Lipase 62 U/L U/L (23-300) Urine Color Urine Appearance Urine pH Ur Specific [place] Urine Protein Urine Glucose (UA) Urine Ketones Ur Blood (Man) Urine Nitrate Urine Bilirubin Urine Urobilinogen Leukocyte Esterase Rfl Urine RBC Urine WBC Ur Squamous Epith Cells Urine Mucus Influenza A (RT-PCR) Influenza B (RT-PCR) SARS-CoV-2 RNA (RT-PCR) 07/02/22 07/02/22 07/03/22 19:44 19:57 05:06 WBC 9.9 K/mm3 K/mm3 (4.5-10.0) RBC 4.01 M/mm3 L M/mm3 (4.2-5.4) Hgb 11.8 g/dL L g/dL (12.0-15.0) Hct 35.8 % L % (37.0-47.0) MCV 89.3 fl fl
--- NOTE | 2022-07-03 17:07 | WPDHPUPDATE1 ---
History and Physical Update Update Date/Time: 07/03/22 17:07 History and Physical has been reviewed, including an updated exam of the patient. There are NO changes in the patient's condition. Risks, benefits, and alternatives have been discussed and questions answered. Patient agrees to proceed with procedure.
[2022-07-03] MEDS: ceFAZolin 2 GM/D5W 50 ML 2 GM/50 ML BAG IVPB (17:16)
[2022-07-03] MEDS: BUPIVACAINE/EPINEPHRINE 0.5% 30 ML VIAL INFILTRATE (17:36)
--- NOTE | 2022-07-03 18:00 | W.PM.PROC2 ---
Procedure Note - Detailed Date of Procedure 07/03/22 Pre-op Diagnosis Acute Cholecystitis Post-op Diagnosis Same Procedure Performed Laparoscopic Cholecystectomy Surgeon Romario Esquivel, DO Anesthesia General and Local (0.5% bupivacaine) Indications This is a 56-year-old woman who presented to the emergency department with epigastric pain that started 2 days ago. Her pain was persisting and becoming more severe therefore she presented to the ED. she was noted to have significantly elevated liver enzymes and bilirubin. Imaging showed evidence of acute calculous cholecystitis. She was admitted for further treatment. An MRCP was performed this morning and showed no evidence of choledocholithiasis. Discussions were made with the patient about treatment options and decision was made to proceed with laparoscopic cholecystectomy, possible open. Findings Laparoscopic cholecystectomy was performed. The gallbladder had evidence of acute cholecystitis with gallbladder distension and hyperemia/edema of the gallbladder. There were many small stones within the gallbladder. Cystic duct appeared normal in size. The gallbladder was removed and sent to the lab for pathology. Description of Procedure Procedure as well as risks, benefits, and alternatives were discussed with patient. Written consent was obtained and placed in chart prior to procedure. The patient was brought back to surgical suite. Patient was placed in supine position on operating table. Time-out was done to confirm patient and procedure. Patient was then intubated by the anesthesia department. Abdomen was prepped and draped in sterile fashion using chlorhexidine prep. 0.5% bupivacaine with epinephrine was infiltrated at each site of incision. A 5 millimeter incision was made near the umbilicus, and a 5 millimeter Optiview trocar was advanced through the abdominal layers under direct visualization. Once inside the abdominal cavity, carbon dioxide was insufflated to create a pneumoperitoneum. The camera was inserted and the abdomen was inspected. No immediate abnormalities were identified. The patient was placed in reverse Trendelenburg position and rotated slightly to the left. An 11 millimeter incision was made in the subxiphoid region, and an 11 millimeter trocar was inserted under direct visualization. Two 5 millimeter incisions were made in the right upper quadrant, and two 5 millimeter trocars were inserted under direct visualization. The gallbladder was identified and grasped at the fundus and retracted superiorly. It was then grasped at the infundibulum retracted laterally. Careful dissection around the neck of the gallbladder was performed using blunt dissection with a [place] grasper and hook electrocautery. The cystic duct was identified, and a window was created behind it. The cystic artery was also identified and a window was created behind it. The critical view of safety was identified, visualizing the cystic duct running directly into the neck of the gallbladder, and the cystic artery running directly into the wall of the gallbladder. A 5 millimeter clip truck washer was then used to place 2 clips proximally and 1 clip distally on both the cystic duct and cystic artery. They were then both transected using endoscopic scissors. Once safely away from the carrie hepatitis, the gallbladder was dissected free from the liver bed using hook electrocautery. Hemostasis was achieved along the way. The gallbladder was removed completely and then removed through the subxiphoid port. The liver bed was then inspected. Hemostasis appeared adequate, and our clips appeared secure. The area was gently irrigated with sterile saline. No other abnormalities were seen. The patient was flattened out in bed, and 1 final inspection was made around the abdominal cavity. The subxiphoid port was removed, and a Dontrell Davian cone was used to approximate the fascia with an 0-Vicryl simple interrupted sutur
[2022-07-03] MEDS: fentaNYL CITRATE INJ (*CRX) 100 MCG/2 ML VIAL 25 MCG IV PUSH ×4 (18:12→18:40)
[2022-07-03] MEDS: HYDROmorphone HCL INJ (*CRX) 1 MG/ML SYR IV PUSH (20:01)
[2022-07-04] VITALS (7 sets, daily range): BP systolic 113–128; BP diastolic 53–70; PULSE 72–84; RESP 16; TEMP 36.7–37.3; O2SAT 91–97
[2022-07-04] MEDS: HYDROcodone/acetaminophen (*CRX) 7.5-325 MG TABLET 1 TAB PO ×4 (03:02→21:02)
[2022-07-04] MEDS: HYDROmorphone HCL INJ (*CRX) 1 MG/ML SYR IV PUSH (04:56)
[2022-07-04 05:58] LABS: Hemoglobin 10.9 g/dL (12.0-15.0); Mean Corpuscular HGB Conc 32.1 g/dl (32-36); Mean Corpuscular Hemoglobin 29.1 pg (26-34); Mean Corpuscular Volume 90.7 fl (80-100); Mean Platelet Volume 10.2 fl (7.4-10.4); Platelet Count Result 213 k/mm3 (150-375); Red Blood Count 3.75 M/mm3 (4.2-5.4); Red Cell Distribution Width 13.2 % (11.5-14.5); White Blood Count 11.1 K/mm3 (4.5-10.0)
[2022-07-04 06:01] LABS: Alanine Aminotransferase 706 U/L (6-35); Albumin Level 3.4 g/dL (3.5-5.1); Alkaline Phosphatase 267 U/L (38-126); Anion Gap 7 mmol/L (8-16); Aspartate Amino Transferase 247 U/L (14-36); Bilirubin,Total 2.6 mg/dL (0.2-1.3); Blood Urea Nitrogen 8 mg/dL (7-17); Calcium 7.7 mg/dL (8.4-10.2); Carbon Dioxide 23 mmol/L (22-30); Chloride 105 mmol/L (98-107); Estimated CRCL calculation 102 ml/min; Estimated Glomerular Filt Rate > 60; Glucose 113 mg/dL (65-110); Potassium 3.7 mmol/L (3.4-5.0); Sodium 135 mmol/L (137-145)
[2022-07-04] MEDS: metroNIDAZOLE 500 MG/ISO 100ML 500 MG/100 ML BAG 100 MG IVPB ×3 (06:01→21:02)
--- NOTE | 2022-07-04 08:06 | WPDANESPN ---
Anes - Prog Note Post-Op Date/Time: 07/04/22 08:06 Vital Signs: Last Vital Signs Temp 36.7 C 07/04/22 04:32 Pulse 78 07/04/22 04:32 Resp 16 07/04/22 04:32 BP 121/70 07/04/22 04:32 Pulse Ox 94 07/04/22 04:32 O2 Del Method Room Air 07/03/22 20:00 O2 Flow Rate 2 07/03/22 18:45 Pain Score (VAS): 3 I/O: Intake & Output 07/03/22 07/04/22 07/04/22 23:59 07:59 15:59 Intake Total 350 Output Total 800 Balance -450 Laboratory Tests 07/04/22 05:01 07/04/22 05:01 07/04/22 07/04/22 05:01 05:01 WBC 11.1 H RBC 3.75 L Hgb 10.9 L Hct 34.0 L MCV 90.7 MCH 29.1 MCHC 32.1 RDW 13.2 Plt Count 213 MPV 10.2 Sodium 135 L Potassium 3.7 Chloride 105 Carbon Dioxide 23 Anion Gap 7 L BUN 8 Creatinine 0.50 L Estim Creat Clear Calc 102 Estimated GFR > 60 Glucose 113 H Calcium 7.7 L Total Bilirubin 2.6 H AST 247 H ALT 706 H Alkaline Phosphatase 267 H Total Protein 6.0 L Albumin 3.4 L Patient Feedback: Patient satisfied with anesthetic care.
[2022-07-04] MEDS: HYDROmorphone HCL INJ (*CRX) 1 MG/ML SYR 0.5 MG IV PUSH (08:28)
[2022-07-04] MEDS: ENOXAPARIN 40 MG/0.4 ML SYRINGE SUB-Q (08:29)
[2022-07-04] MEDS: ESCITALOPRAM OXALATE 10 MG TABLET 20 MG PO (08:29)
[2022-07-04] MEDS: ALPRAZolam (*CRX) 0.5 MG TABLET PO ×2 (08:31→20:00)
--- NOTE | 2022-07-04 13:43 | WPDGICN ---
Assessment and Plan Assessment and plan (1) Transaminitis: Code(s): R74.01 - Elevation of levels of liver transaminase levels Status: Acute Assessment and Plan: Patient noted to have elevated transaminases. This appears be on the basis of acute cholecystitis. Elevated LFTs have begun to gradually improve after cholecystectomy BS today. No specific bile duct obstruction was identified at time of surgery nor with imaging studies. Plan to continue monitor LFTs until resolution. (2) Acute cholecystitis: Code(s): K81.0 - Acute cholecystitis Status: Acute Assessment and Plan: Patient is now status post laparoscopic cholecystectomy for acute cholecystitis. Elevated LFTs likely on this basis. Will continue to monitor. No specific intervention anticipated otherwise at this time. GI Consult Note Consult date/time: 07/04/22 13:43 Reason for consult: Biliary obstruction . HPI: Cheryl Waller is a 56 year old female Was seen in consult today at the request of the hospitalist service. I was notified to see the patient this morning. It appears the consult originally may have been placed prior to surgical intervention yesterday. Patient presented the emergency room department on yesterday after complaints of epigastric abdominal pain for at least 2 days prior to that. She describes rather severe abdominal pain upon presented to the emergency room was found to have elevated bilirubin in serum transaminases. CT scan imaging was performed which revealed acute calculous cholecystitis. MRCP was performed revealed no evidence of common bile duct gallstones and patient was taken to surgery where she underwent laparoscopic cholecystectomy. Since that time patient has noticed gradual improvement. She continues to complain of incisional discomfort. She is able to eat but has somewhat diminished appetite. Liver function tested begun to improve. Patient reports bowel function persists. She is tolerating diet with no emesis. Review of Systems Review of Systems: Review of systems noncontributory. [facility] Past Medical History Medical History ADD (attention deficit disorder) Anxiety with depression Postmenopausal Surgical History Surgical History H/O left wrist surgery Reconstructive surgery to the ventral wrist after falling through a plate glass window History of 2 sections Family History Family History Son History of sudden cardiac arrest successfully resuscitated, Onset Age: 25 Cardiac defibr[address] in place Mitral valve prolapse Father , At age 62 Acute myocardial infarction Grandparent , At age 57 Acute myocardial infarction Mother Gallbladder disease Social History Social History Social History: 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 She lives alone. She has 2 adult sons ages 30 in 35. 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 She is a lifelong nonsmoker. She drinks alcohol approximately once per month. She denies illicit substance use. Code status: Full code Surrogate decision maker: Pili Anthony (mother) Smoking status: Never smoker Alcohol intake: never Alcohol use details: rare social Substance use: never Lack of Transportation: No Lack of Food: Never True Current Housing: I Have Housing Concerned About Future Housing: Decline to Answer Difficulty Paying Gas/Electric Bills: Decline to Answer Difficulty Paying for Meds: Decline to Answer Currently Unemployed: Decline to Answer Education: Decline to Answer Difficulty w/ Childcare or Family Care: Decline to Answer Gender identity (if verbalized by the patient): Female Spiritual care concerns: No Meds Home Medicati
--- NOTE | 2022-07-04 15:45 | PM.IMPN ---
Progress Note: A&P Assessment and Plan (1) Cholelithiasis with acute cholecystitis: Qualifiers: Biliary obstruction: with biliary obstruction Qualified Code(s): K80.01 - Calculus of gallbladder with acute cholecystitis with obstruction Code(s): K80.00 - Calculus of gallbladder with acute cholecystitis without obstruction Status: Acute Assessment and Plan: Patient presented with epigastric and right upper quadrant pain. CT of the abdomen/pelvis revealed acute cholecystitis with mild intrahepatic biliary duct dilation. Lipase within normal limits. Appreciate general surgery and gastroenterology consultation. Patient with transaminitis and mild intrahepatic biliary duct dilation noted on CT, therefore MRCP completed which showed cholelithiasis, gallbladder wall thickening and pericholecystic fluid consistent with acute cholecystitis. No evidence of choledocholithiasis. Patient underwent laparoscopic cholecystectomy on 07/03/2022. She tolerated the procedure well. Advance to low-fat diet. Continue ceftriaxone and Flagyl. Begin scheduled Tylenol and attempt to limit IV analgesics. Discussed the case with general surgery. (2) Transaminitis: Code(s): R74.01 - Elevation of levels of liver transaminase levels Status: Acute Assessment and Plan: Trending down. As noted above, no evidence of choledocholithiasis. total bilirubin improved to 2.6 today with AST down to 247 and ALT down to 706. recheck tomorrow morning (3) Hypoxia: Code(s): R09.02 - Hypoxemia Status: Acute Assessment and Plan: Patient hypoxic after procedure and required 2 L supplemental O2. She was weaned from oxygen overnight and was on room air this morning. This afternoon, became hypoxic and again required 2 L supplemental O2. Ordered CXR and personally reviewed. Imaging revealed findings of atelectasis. Continue to encourage frequent incentive spirometry use. As noted above, limit narcotics. wean oxygen as tolerated (4) Anxiety with depression: Code(s): F41.8 - Other specified anxiety disorders Status: Chronic Assessment and Plan: no acute issues. Mood is stable. continue home alprazolam and Lexapro Time Spent With Patient Time: 50 minutes for patient encounter Subjective Date/time seen: 07/04/22 15:45 Interval history: Date of service: 07/04/2022 Cheryl Monaco is a 56-year-old female with history of anxiety, depression, and attention deficit disorder who is seen in follow-up for cholelithiasis and acute cholecystitis. She underwent laparoscopic cholecystectomy yesterday. She tolerated the procedure well. Today she reports soreness at the site of her incisions and still some ongoing abdominal pain, though overall improved. Reports that she is still requiring IV analgesics. Discussed transitioning to orals in order to allow for discharge home. Patient was able to tolerate liquids for breakfast today and will advance to low-fat diet for lunch. She denies any shortness of breath, cough, or chest pain. Denies fevers or chills. Review of Systems Review of Systems: All systems reviewed & are unremarkable except as noted in HPI and below Exam Narrative: General: well-nourished, well-appearing 56-year-old female, sitting up in bed, comfortable, NARD Neuro: awake, alert and oriented x4, speech clear, no focal neuro deficits noted HEENMT: normocephalic, atraumatic, EOMI, sclerae anicteric Respiratory: clear to auscultation bilaterally, nonlabored breathing Cardio: regular rate, regular rhythm with S1-S2 Abdomen: nondistended, normoactive bowel sounds, soft, nontender to palpation, surgical incisions visualized Extremities: no edema, erythema, or tenderness to palpation, DP pulses 2+ bilaterally Skin: no rashes or lesions, warm and dry Psych: appropriate mood and affect, judgment and insight intact Objective Data Vital Signs Vital Signs: Vi
--- NOTE | 2022-07-04 15:55 | PM.PNGS ---
Progress Note: A&P Assessment and Plan (1) Cholelithiasis with acute cholecystitis: Qualifiers: Biliary obstruction: with biliary obstruction Qualified Code(s): K80.01 - Calculus of gallbladder with acute cholecystitis with obstruction Code(s): K80.00 - Calculus of gallbladder with acute cholecystitis without obstruction Status: Acute Assessment and Plan: Post-op day 1 and doing fair. This morning she was having some issues with pain control and was still requiring IV Dilaudid, but this has improved. She is trying to stick with oral analgesics this afternoon. Tolerating a low fat diet. Hopefully she will be stable for discharge tomorrow if her pain is better controlled and she has been weaned off oxygen. (2) Transaminitis: Code(s): R74.01 - Elevation of levels of liver transaminase levels Status: Acute Assessment and Plan: Trending down. Related to the acute cholecystitis now s/p lap marielle. Plan I have discussed the patient's case and plan of care with Dr. Esquivel. Subjective Subjective Date/Time Seen: 07/04/22 15:55 Post Op day: 1 (Laparoscopic cholecystectomy) Patient reports: tolerating a regular diet, voiding w/o difficulty, flatus, no bowel movement and afebrile Interval history: Patient seen this afternoon. Overall, she is doing well. Last night and this morning she felt she was letting her pain get out of control and had required IV Dilaudid multiple times. She has tried taking the oral analgesics before letting her pain get out of control and feels that her pain is much better controlled this afternoon. She only complains of abdominal pain and soreness mostly at the epigastric incision. No nausea or vomiting. She is tolerating walking in her room and to the bathroom. She was put on 2 L nasal cannula today due to having an oxygen saturation in the 80s. She had not been using her incentive spirometer and has since been trying to use it more frequently throughout the day. Denies any shortness of breath or chest pain. Review of Systems Review of Systems: All systems reviewed & are unremarkable except as noted in HPI and below Exam Const: General: no acute distress Orientation/consciousness: patient oriented x3 GI: Inspection: non-distended and incision (dry and intact) GI Palp: Yes Soft to palpation, Yes Tenderness to palpation present (GI) (expected incisional tenderness) and No Guarding due to palpation present (GI) Auscultation: normal bowel sounds Extrem: General: no calf tenderness and no edema Objective Data Vital Signs Vital Signs: Vital Signs - 24 hr 07/03/22 16:15 07/03/22 18:03 07/03/22 18:15 Temperature 99.5 F 98.0 F Pulse Rate 86 101 H 77 Respiratory Rate 16 18 18 Blood Pressure 136/66 145/70 H 132/58 L Pulse Oximetry 95 98 93 Oxygen Delivery Room Air Simple Face Mask Simple Face Mask Oxygen Flow Rate 6 6 07/03/22 18:24 07/03/22 18:30 07/03/22 18:45 Temperature Pulse Rate 72 94 Respiratory Rate 20 18 Blood Pressure 138/63 124/51 L Pulse Oximetry 94 93 96 Oxygen Delivery Room Air Nasal Cannula Nasal Cannula Oxygen Flow Rate 2 2 07/03/22 18:47 07/03/22 19:02 07/03/22 19:32 Temperature 98.4 F 98.4 F 98.4 F Pulse Rate 78 74 77 Respiratory Rate 16 16 16 Blood Pressure 127/73 126/70 130/71 Pulse Oximetry 94 98 95 Oxygen Delivery Oxygen Flow Rate 07/03/22 20:32 07/03/22 20:00 07/04/22 00:32 Temperature 98.4 F 98.2 F Pulse Rate 77 77 74 Respiratory Rate 16 16 16 Blood Pressure 125/71 122/70 Pulse Oximetry 95 95 97 Oxygen Delivery Room Air Oxygen Flow Rate 07/04/22 04:32 07/04/22 08:00 07/04/22 11:00 Temperature 98.1 F 99.1 F Pulse Rate 78 84 Respiratory Rate 16 16 Blood Pressure 121/70 116/61 Pulse Oximetry 94 91 Oxygen Delivery Room Air Oxygen Flow Rate 07/04/22 11:14 07/04/22 14:54 Temperature 98.4 F Pulse Rate 79 Respiratory Rate 16 Blood Pressure 128/61 Pulse
--- NOTE | 2022-07-04 16:03 | PM.PNGS ---
Progress Note: A&P Assessment and Plan (1) Cholelithiasis with acute cholecystitis: Qualifiers: Biliary obstruction: with biliary obstruction Qualified Code(s): K80.01 - Calculus of gallbladder with acute cholecystitis with obstruction Code(s): K80.00 - Calculus of gallbladder with acute cholecystitis without obstruction Status: Acute Assessment and Plan: Doing well on POD#1. Encouraged IS and increasing activity. Liver enzymes trending down. Will likely need to stay one more day due to pain control and hypoxia postop. (2) Transaminitis: Code(s): R74.01 - Elevation of levels of liver transaminase levels Status: Acute Subjective Subjective Date/Time Seen: 07/04/22 16:03 Interval history: Patient still having some incisional pain. No nausea or vomiting, tolerating low fat diet. Was hypoxic earlier today and had to be placed on supplemental oxygen. Not using incentive spirometer much yet. Exam GI: Inspection: incision (intact with glue) GI Palp: Yes Soft to palpation and Yes Tenderness to palpation present (GI) (incisional) Objective Data Vital Signs Vital Signs: Vital Signs - 24 hr 07/03/22 16:15 07/03/22 18:03 07/03/22 18:15 Temperature 37.5 C 36.7 C Pulse Rate 86 101 H 77 Respiratory Rate 16 18 18 Blood Pressure 136/66 145/70 H 132/58 L Pulse Oximetry 95 98 93 Oxygen Delivery Room Air Simple Face Mask Simple Face Mask Oxygen Flow Rate 6 6 07/03/22 18:24 07/03/22 18:30 07/03/22 18:45 Temperature Pulse Rate 72 94 Respiratory Rate 20 18 Blood Pressure 138/63 124/51 L Pulse Oximetry 94 93 96 Oxygen Delivery Room Air Nasal Cannula Nasal Cannula Oxygen Flow Rate 2 2 07/03/22 18:47 07/03/22 19:02 07/03/22 19:32 Temperature 36.9 C 36.9 C 36.9 C Pulse Rate 78 74 77 Respiratory Rate 16 16 16 Blood Pressure 127/73 126/70 130/71 Pulse Oximetry 94 98 95 Oxygen Delivery Oxygen Flow Rate 07/03/22 20:32 07/03/22 20:00 07/04/22 00:32 Temperature 36.9 C 36.8 C Pulse Rate 77 77 74 Respiratory Rate 16 16 16 Blood Pressure 125/71 122/70 Pulse Oximetry 95 95 97 Oxygen Delivery Room Air Oxygen Flow Rate 07/04/22 04:32 07/04/22 08:00 07/04/22 11:00 Temperature 36.7 C 37.3 C Pulse Rate 78 84 Respiratory Rate 16 16 Blood Pressure 121/70 116/61 Pulse Oximetry 94 91 Oxygen Delivery Room Air Oxygen Flow Rate 07/04/22 11:14 07/04/22 14:54 Temperature 36.9 C Pulse Rate 79 Respiratory Rate 16 Blood Pressure 128/61 Pulse Oximetry 91 93 Oxygen Delivery Nasal Cannula Oxygen Flow Rate 2 Intake/Output Intake/Output: Intake & Output 07/01/22 07/02/22 07/03/22 07/04/22 23:59 23:59 23:59 23:59 Intake Total 1150 1550 680 Output Total 800 Balance 1150 750 680 Meds/Results Medications: Active Medications Generic Name Dose Route Start Last Admin Trade Name Freq PRN Reason Stop Dose Admin Acetaminophen 650 mg 07/04/22 16:00 Acetaminophen 325 Mg Tablet PO Q8HR LARA Hydrocodone Bitart/Acetaminophen 1 tab 07/03/22 18:47 Hydrocodone/Acetaminophen (*Crx) 5-325 Mg Tablet PO Q4H PRN Pain Rated 4-6 Hydrocodone Bitart/Acetaminophen 1 tab 07/03/22 18:47 07/04/22 12:28 Hydrocodone/Acetaminophen (*Crx) 7.5-325 Mg Tablet PO 1 tab Q4H PRN Administration Pain Rated 7-10 Alprazolam 0.5 mg 07/03/22 18:47 07/04/22 08:31 Alprazolam (*Crx) 0.5 Mg Tablet PO 0.5 mg TID PRN Administration Anxiety Enoxaparin Sodium 40 mg 07/04/22 09:00 07/04/22 08:29 Enoxaparin 40 Mg/0.4 Ml Syringe SUB-Q 40 mg DAILY LARA Administration Escitalopram Oxalate 20 mg 07/04/22 09:00 07/04/22 08:29 Escitalopram Oxalate 10 Mg Tablet PO 20 mg DAILY LARA Administration Hydromorphone HCl 0.5 mg 07/03/22 18:47 07/04/22 08:28 Hydromorphone Hcl Inj (*Crx) 1 Mg/Ml Syr IV PUSH 0.5 mg Q2H PRN Administration Pain Rated 4-6 Hydromorphone HCl 1 mg 07/03/22
[2022-07-04] MEDS: ACETAMINOPHEN 325 MG TABLET 650 MG PO ×2 (16:07→22:44)
[2022-07-05] MEDS: HYDROcodone/acetaminophen (*CRX) 7.5-325 MG TABLET 1 TAB PO ×2 (01:01→07:19)
[2022-07-05 05:52] LABS: Hematocrit 35.9 % (37.0-47.0); Hemoglobin 11.5 g/dL (12.0-15.0); Mean Corpuscular Volume 90.4 fl (80-100); Mean Platelet Volume 9.8 fl (7.4-10.4); Platelet Count Result 244 k/mm3 (150-375); Red Blood Count 3.97 M/mm3 (4.2-5.4); Red Cell Distribution Width 13.2 % (11.5-14.5); White Blood Count 8.7 K/mm3 (4.5-10.0)
[2022-07-05] MEDS: metroNIDAZOLE 500 MG/ISO 100ML 500 MG/100 ML BAG 100 MG IVPB ×3 (05:53→21:06)
[2022-07-05] MEDS: ACETAMINOPHEN 325 MG TABLET 650 MG PO ×3 (05:53→22:00)
[2022-07-05 06:10] LABS: Alanine Aminotransferase 513 U/L (6-35); Albumin Level 3.4 g/dL (3.5-5.1); Alkaline Phosphatase 301 U/L (38-126); Anion Gap 4 mmol/L (8-16); Aspartate Amino Transferase 131 U/L (14-36); Bilirubin,Total 1.6 mg/dL (0.2-1.3); Blood Urea Nitrogen 9 mg/dL (7-17); Calcium 7.6 mg/dL (8.4-10.2); Carbon Dioxide 27 mmol/L (22-30); Chloride 103 mmol/L (98-107); Estimated CRCL calculation 102 ml/min; Estimated Glomerular Filt Rate > 60; Glucose 115 mg/dL (65-110); Potassium 3.4 mmol/L (3.4-5.0); Sodium 134 mmol/L (137-145)
[2022-07-05] MEDS: ONDANSETRON INJ 4 MG/2 ML VIAL IV PUSH (07:19)
[2022-07-05 08:00] VITALS: O2SAT 92
[2022-07-05] MEDS: ENOXAPARIN 40 MG/0.4 ML SYRINGE SUB-Q (08:24)
[2022-07-05] MEDS: ALPRAZolam (*CRX) 0.5 MG TABLET PO ×2 (08:24→17:19)
[2022-07-05] MEDS: ESCITALOPRAM OXALATE 10 MG TABLET 20 MG PO (08:24)
--- NOTE | 2022-07-05 09:07 | PM.PNGS ---
Progress Note: A&P Assessment and Plan (1) Cholelithiasis with acute cholecystitis: Qualifiers: Biliary obstruction: with biliary obstruction Qualified Code(s): K80.01 - Calculus of gallbladder with acute cholecystitis with obstruction Code(s): K80.00 - Calculus of gallbladder with acute cholecystitis without obstruction Status: Acute Assessment and Plan: Surgically doing well. Just needs to get up and move more and continue weaning oxygen. Liver enzymes are trending down. She's tolerating her low fat diet. OK to discharge once on room air. Discussed discharge instructions. Follow up in 2 weeks. (2) Transaminitis: Code(s): R74.01 - Elevation of levels of liver transaminase levels Status: Acute (3) Hypoxia: Code(s): R09.02 - Hypoxemia Status: Acute Subjective Subjective Date/Time Seen: 07/05/22 09:07 Interval history: Still on supplemental oxygen. Tolerating diet. Pain improving. No fevers. Says urine is still a little dark almost orange colored. Exam GI: Inspection: non-distended and incision (intact with glue) GI Palp: Yes Soft to palpation and Yes Tenderness to palpation present (GI) (minimal incisional tenderness) Objective Data Vital Signs Vital Signs: Vital Signs - 24 hr 07/04/22 11:00 07/04/22 11:14 07/04/22 14:54 Temperature 37.3 C 36.9 C Pulse Rate 84 79 Respiratory Rate 16 16 Blood Pressure 116/61 128/61 Pulse Oximetry 91 91 93 Oxygen Delivery Nasal Cannula Oxygen Flow Rate 2 07/04/22 20:15 07/04/22 20:00 Temperature 36.7 C Pulse Rate 72 72 Respiratory Rate 16 16 Blood Pressure 113/53 L Pulse Oximetry 95 95 Oxygen Delivery Nasal Cannula Oxygen Flow Rate 1 Intake/Output Intake/Output: Intake & Output 07/02/22 07/03/22 07/04/22 07/05/22 23:59 23:59 23:59 23:59 Intake Total 1150 1550 1620 Output Total 800 Balance 8496 723 [id number] Meds/Results Medications: Active Medications Generic Name Dose Route Start Last Admin Trade Name Freq PRN Reason Stop Dose Admin Acetaminophen 650 mg 07/04/22 16:00 07/05/22 05:53 Acetaminophen 325 Mg Tablet PO 650 mg Q8HR LARA Administration Hydrocodone Bitart/Acetaminophen 1 tab 07/03/22 18:47 Hydrocodone/Acetaminophen (*Crx) 5-325 Mg Tablet PO Q4H PRN Pain Rated 4-6 Hydrocodone Bitart/Acetaminophen 1 tab 07/03/22 18:47 07/05/22 07:19 Hydrocodone/Acetaminophen (*Crx) 7.5-325 Mg Tablet PO 1 tab Q4H PRN Administration Pain Rated 7-10 Alprazolam 0.5 mg 07/03/22 18:47 07/05/22 08:24 Alprazolam (*Crx) 0.5 Mg Tablet PO 0.5 mg TID PRN Administration Anxiety Enoxaparin Sodium 40 mg 07/04/22 09:00 07/05/22 08:24 Enoxaparin 40 Mg/0.4 Ml Syringe SUB-Q 40 mg DAILY LARA Administration Escitalopram Oxalate 20 mg 07/04/22 09:00 07/05/22 08:24 Escitalopram Oxalate 10 Mg Tablet PO 20 mg DAILY LARA Administration Hydromorphone HCl 0.5 mg 07/03/22 18:47 07/04/22 08:28 Hydromorphone Hcl Inj (*Crx) 1 Mg/Ml Syr IV PUSH 0.5 mg Q2H PRN Administration Pain Rated 4-6 Hydromorphone HCl 1 mg 07/03/22 18:47 07/04/22 04:56 Hydromorphone Hcl Inj (*Crx) 1 Mg/Ml Syr IV PUSH 1 mg Q2H PRN Administration Pain Rated 7-10 Ceftriaxone Sodium/Dextrose 1 gm in 50 mls @ 100 mls/hr 07/03/22 20:00 07/04/22 20:43 Rocephin 1 Gm/D5w 50 Ml IVPB Infused Q24H LARA Infusion Metronidazole 500 mg in 100 mls @ 100 mls/hr 07/03/22 06:00 07/05/22 05:53 Flagyl 500 Mg/Iso Soln 100 Ml IVPB 100 mls/hr Q8HR LARA Administration Ibuprofen 600 mg 07/03/22 18:47 Ibuprofen 600 Mg Tablet PO Q6H PRN Pain Rated 1-3 Ondansetron HCl 4 mg 07/02/22 19:58 07/05/22 07:19 Ondansetron Inj 4 Mg/2 Ml Vial IV PUSH 4 mg Q6H PRN Administration Nausea And Vomiting Radiology Results: ITS Impressions Abdomen/Pelvis CT 07/02/22 18:51 IMPRESSION: 1. Acute cholecystitis.
[2022-07-05 13:46] VITALS: BP 123/62; PULSE 78; RESP 18; TEMP 36.8; O2SAT 92
[2022-07-05 14:00] VITALS: O2SAT 94
--- NOTE | 2022-07-05 14:17 | PM.IMPN ---
Progress Note: A&P Assessment and Plan (1) Cholelithiasis with acute cholecystitis: Qualifiers: Biliary obstruction: with biliary obstruction Qualified Code(s): K80.01 - Calculus of gallbladder with acute cholecystitis with obstruction Code(s): K80.00 - Calculus of gallbladder with acute cholecystitis without obstruction Status: Acute Assessment and Plan: Patient presented with epigastric and right upper quadrant pain. CT of the abdomen/pelvis revealed acute cholecystitis with mild intrahepatic biliary duct dilation. Lipase within normal limits. Appreciate general surgery and gastroenterology consultation. Patient with transaminitis and mild intrahepatic biliary duct dilation noted on CT, therefore MRCP completed which showed cholelithiasis, gallbladder wall thickening and pericholecystic fluid consistent with acute cholecystitis. No evidence of choledocholithiasis. Patient underwent laparoscopic cholecystectomy on 07/03/2022. She tolerated the procedure well. Tolerating low-fat diet. Continue ceftriaxone and Flagyl. Continue scheduled Tylenol and avoid IV analgesics. Limit narcotics due to hypoxia. Outpatient general surgery follow-up in 2 weeks (2) Hypoxia: Code(s): R09.02 - Hypoxemia Status: Acute Assessment and Plan: Patient hypoxic after procedure and required 2 L supplemental O2. She has been weaned to 1 L supplemental O2. CXR showed bibasilar atelectasis. Continue with frequent incentive spirometry. Increased ambulation encouraged. Limit narcotics as noted above. Wean oxygen as tolerated. Plan for home O2 eval prior to discharge. (3) Transaminitis: Code(s): R74.01 - Elevation of levels of liver transaminase levels Status: Acute Assessment and Plan: Trending down. As noted above, no evidence of choledocholithiasis. total bilirubin improved to 1.6 today with AST down to 131 and ALT down to 513. recheck tomorrow morning (4) Anxiety with depression: Code(s): F41.8 - Other specified anxiety disorders Status: Chronic Assessment and Plan: No acute issues. Mood is stable. continue home alprazolam and Lexapro Subjective Date/time seen: 07/05/22 14:18 Interval history: Date of service: 07/05/2022 Cheryl Monaco is a 56-year-old female with history of anxiety, depression, and attention deficit disorder who is seen in follow-up for cholelithiasis and acute cholecystitis. She is s/p laparoscopic cholecystectomy on 07/03/2022. She is doing well today. Her pain is better controlled. She is tolerating her diet. She denies shortness of breath or cough. Denies nausea, vomiting, fever, or chills. States she has been able to ambulate independently. She has no additional concerns Review of Systems Review of Systems: All systems reviewed & are unremarkable except as noted in HPI and below Exam Narrative: General: well-nourished, well-appearing 56-year-old female, supine in bed, comfortable, NARD Neuro: awake, alert and oriented x4, speech clear, no focal neuro deficits noted HEENMT: normocephalic, atraumatic, EOMI, sclerae anicteric Respiratory: clear to auscultation bilaterally, nonlabored breathing Cardio: regular rate, regular rhythm with S1-S2 Abdomen: nondistended, normoactive bowel sounds, soft, nontender to palpation Extremities: no edema, erythema, or tenderness to palpation, DP pulses 2+ bilaterally Skin: no rashes or lesions, warm and dry Psych: appropriate mood and affect, judgment and insight intact Objective Data Vital Signs Vital Signs: Vital Signs - 24 hr 07/04/22 14:54 07/04/22 20:15 07/04/22 20:00 Temperature 98.4 F 98.1 F Pulse Rate 79 72 72 Respiratory Rate 16 16 16 Blood Pressure 128/61 113/53 L Pulse Oximetry 93 95 95 Oxygen Delivery Nasal Cannula Oxygen Flow Rate 1 07/05/22 08:00 07/05/22 13:46 Temperature 98.2 F Pulse Rate 78 Respiratory Rate 18 Blood Pressu
[2022-07-05] MEDS: HYDROcodone/acetaminophen (*CRX) 5-325 MG TABLET 1 TAB PO ×2 (17:19→21:06)
[2022-07-05 17:32] LABS: Appearance Urine Clear (Clear); Bilirubin Urine Negative (Negative); Blood Urine Negative (Negative); Color Urine Yellow (Yellow); Glucose Urine UA Trace mg/dL (Negative); Ketones Urine Negative (Negative); Leukocyte Esterase Ur 1+ LEU/UL (Negative); Nitrate Urine Negative (Negative); Protein Urine Negative (Negative); Specific Grav Ur 1.015 (1.001-1.035)
[2022-07-05 17:35] LABS: Amorphous Sediment Urine Few; Bacteria Urine Trace /hpf; RBC Urine 0-2 /hpf (0-2); Squamous Epithelial Cell Urine Rare /hpf (Few)
[2022-07-05 17:38] LABS: Add Urine Microscopic? YES
[2022-07-05 20:00] VITALS: BP 128/72; PULSE 78; PULSE 85; RESP 16; RESP 18; TEMP 37.4; O2SAT 92; O2SAT 94
[2022-07-06 03:43] VITALS: BP 112/63; PULSE 69; RESP 18; TEMP 36.2; O2SAT 93
[2022-07-06] MEDS: ACETAMINOPHEN 325 MG TABLET 650 MG PO (05:34)
[2022-07-06] MEDS: metroNIDAZOLE 500 MG/ISO 100ML 500 MG/100 ML BAG 100 MG IVPB (05:34)
[2022-07-06 06:01] LABS: Hematocrit 37.8 % (37.0-47.0); Hemoglobin 12.4 g/dL (12.0-15.0); Mean Corpuscular HGB Conc 32.8 g/dl (32-36); Mean Corpuscular Hemoglobin 29.9 pg (26-34); Mean Corpuscular Volume 91.1 fl (80-100); Mean Platelet Volume 9.6 fl (7.4-10.4); Platelet Count Result 268 k/mm3 (150-375); Red Blood Count 4.15 M/mm3 (4.2-5.4); Red Cell Distribution Width 13.3 % (11.5-14.5); White Blood Count 8.2 K/mm3 (4.5-10.0)
[2022-07-06 06:08] LABS: Alanine Aminotransferase 384 U/L (6-35); Albumin Level 3.1 g/dL (3.5-5.1); Alkaline Phosphatase 343 U/L (38-126); Anion Gap 4 mmol/L (8-16); Aspartate Amino Transferase 85 U/L (14-36); Bilirubin,Total 1.2 mg/dL (0.2-1.3); Blood Urea Nitrogen 5 mg/dL (7-17); Calcium 7.9 mg/dL (8.4-10.2); Carbon Dioxide 29 mmol/L (22-30); Chloride 106 mmol/L (98-107); Estimated CRCL calculation 102 ml/min; Estimated Glomerular Filt Rate > 60; Glucose 112 mg/dL (65-110); Potassium 3.4 mmol/L (3.4-5.0); Sodium 139 mmol/L (137-145)
[2022-07-06] MEDS: ENOXAPARIN 40 MG/0.4 ML SYRINGE SUB-Q (10:03)
[2022-07-06] MEDS: ESCITALOPRAM OXALATE 10 MG TABLET 20 MG PO (10:03)
[2022-07-06 11:25] VITALS: PULSE 72; O2SAT 94
[2022-07-06 11:32] VITALS: PULSE 97; O2SAT 94
--- NOTE | 2022-07-06 11:55 | HOMEO2EVAL ---
Evaluation was performed at [facility] Home Oxygen Evaluation RC: Home Oxygen (O2) Evaluation Start: 07/06/22 09:01 Freq: ONCE Status: Active Protocol: RPE Activity Type Activity Date Activity User E-sign Co-sign Detail Recorded Client Recorded Date Recorded By Document 07/06/22 11:25 CLC [email or web address] 07/06/22 11:40 CLC Document 07/06/22 11:32 CLC [email or web address] 07/06/22 11:40 CLC 07/06/22 07/06/22 11:25 11:32 Home O2 Evaluation [Oxygen] -Test Phase Resting Exercise -Oxygen Delivery Room Air Room Air [Pulse Oximetry] -Pulse Oximetry (90-100 %) 94 94 [Pulse Rate] -Pulse Rate (60-100 beats/min) 72 97 [Evaluation] -Activity Tolerance Excellent [Exercise] -Ambulation Distance (feet) 200 -Ambulation Distance (meters) 60.95 [Charges] -Treatment Charges O2 Evaluation - Inpatient
--- NOTE | 2022-07-06 11:56 | PCRCNOTE ---
Home oxygen evaluation complete, patient does not require oxygen.
--- NOTE | 2022-07-06 12:05 | PM.DS ---
DS: Admitting Diagnosis Discharge Date 07/06/2022 Admitting Diagnosis Cholelithiasis and acute cholecystitis DS: Discharge Diagnosis Discharge Diagnosis (1) Cholelithiasis with acute cholecystitis: Qualifiers: Biliary obstruction: with biliary obstruction Qualified Code(s): K80.01 - Calculus of gallbladder with acute cholecystitis with obstruction Code(s): K80.00 - Calculus of gallbladder with acute cholecystitis without obstruction Status: Acute Assessment and Plan: Patient presented with epigastric and right upper quadrant pain. CT of the abdomen/pelvis revealed acute cholecystitis with mild intrahepatic biliary duct dilation. Lipase within normal limits. She was seen in consultation by general surgery and gastroenterology. Patient with transaminitis and mild intrahepatic biliary duct dilation noted on CT, therefore MRCP completed which showed cholelithiasis, gallbladder wall thickening and pericholecystic fluid consistent with acute cholecystitis with no evidence of choledocholithiasis. Received ceftriaxone and flagyl perioperatively. Patient underwent laparoscopic cholecystectomy on 07/03/2022. She tolerated the procedure well. Diet was advanced and she was able to tolerate a low-fat diet which she will continue. She will follow up general surgery as an outpatient in 2 weeks (2) Hypoxia: Code(s): R09.02 - Hypoxemia Status: Acute Assessment and Plan: Patient hypoxic after procedure and required 2 L supplemental O2. May be due to combination of anesthesia and narcotics. CXR showed bibasilar atelectasis which also likely contributed. Patient was encouraged to use frequent incentive spirometry and increase ambulation. Narcotics limited. Patient was able to be weaned to room air. Home O2 eval completed prior to discharge patient has no ongoing oxygen requirements (3) Transaminitis: Code(s): R74.01 - Elevation of levels of liver transaminase levels Status: Acute Assessment and Plan: LFTs elevated on admission. MRCP completed in choledocholithiasis was ruled out. LFTs did trend down postoperatively. (4) Anxiety with depression: Code(s): F41.8 - Other specified anxiety disorders Status: Chronic Assessment and Plan: No acute issues. Mood remained stable. continue home alprazolam and Lexapro DS: Summary Hospital Course Hospital Course: Date of Admission: 07/02/2022 Date of discharge: 07/06/2022 Cheryl Monaco is a 56-year-old female with history of anxiety, depression, and attention deficit disorder who presented to the emergency department on 07/02/2022 with epigastric and right upper quadrant pain ongoing for 24 hours with several episodes of emesis. On presentation to the ED, her vital signs were stable, white blood cell count elevated at 13.5, total bilirubin 2.6, AST 1600, ALT 1400, lipase within normal limits, and CT of the abdomen/pelvis showed findings consistent with acute cholecystitis and cholelithiasis. There was also findings of mild intrahepatic biliary dilation. Patient was admitted to the hospitalist service and was seen in consultation by General surgery and Gastroenterology. Please see above for further details. She was made NPO and rehydrated with IV fluids. She underwent MRCP which did not show any evidence of choledocholithiasis. She then underwent laparoscopic cholecystectomy on 07/03/2022. She tolerated the procedure well. Pain became controlled and she was able to advance to a low-fat diet which she will continue. She did have postoperative hypoxia which was felt to be due to atelectasis. She required up to 2 L supplemental oxygen but was able to be weaned to room air with overall improvement. Home O2 eval was completed on day of discharge and patient has no ongoing oxygen requirements. She will follow-up with General surgery as an outpatient. Short course of analgesics was provided. Discussed with the alonzo
[2022-07-06] MEDS: HYDROcodone/acetaminophen (*CRX) 5-325 MG TABLET 1 TAB PO (12:37)
== END 2022-07-06 13:12 | disposition home or self-care (01) | DRG 418 ==
LOC: ANHED 18:13 → ANH3MED 20:53
PROVIDERS: Emergency Medicine; Surgery; Admitting Provider Internal Medicine; Emergency Provider Emergency Medicine; Visit Provider Physician Assistant
PROC: 0FT44ZZ Resection of Gallbladder, Percutaneous Endoscopic Approach (ICD-10-PCS; CPT 47562; principal; 2022-07-03 18:45)
DX: K80.01 Calculus of gallbladder with acute cholecystitis with obstruction (principal); J98.11 Atelectasis; R09.02 Hypoxemia; Z20.822 Contact with and (suspected) exposure to COVID-19; F98.8 Other specified behavioral and emotional disorders with onset usually occurring in childhood and adolescence; F41.8 Other specified anxiety disorders; D72.829 Elevated white blood cell count, unspecified; R74.01 Elevation of levels of liver transaminase levels
CPT/HCPCS: 36415; 71045; 71046; 74177; 74183; 76376; 80053; 81001; 81025; 83690; 83735; 84484; 85025; 85027; 85610; 85730; 87086; 87636; 88304; 93005; 94618; 96361; 96374; 96375; 99285; A9270; A9577; J0330; J0690; J0696; J1100; J1170; J1650; J2405; J2704; J2710; J3010; J7030; J7120; Q9967